=== PATIENT | male | born 2000 | race Caucasian/White ===

== ENCOUNTER 2024-09-16 15:46 | Emergency (ER) | payer BC, OTHER ==
[2024-09-16 16:19] VITALS: BP 125/74; PULSE 97; RESP 20; TEMP 98.2; BMI 26.4
[2024-09-16 17:40] LABS: HEMATOCRIT 45.5 % (35.4-49); HEMOGLOBIN 15.9 G/dL (11.7-16.9); MCH 29.9 pg (25.7-33.7); MCHC 34.9 g/dl (32.0-35.9); MEAN CELL VOLUME 85.6 fl (80-96); MEAN PLT VOLUME 8.8 fl (7.5-11.1); PLATELET COUNT 153.8 10^3/uL (134-434); RBC 5.32 10^6/uL (4.00-5.60); RDW 13.5 % (11.9-15.9); WHITE BLOOD COUNT 7.6 10^3/uL (4.0-10.8)
[2024-09-16 17:49] LABS: ALBUMIN 4.6 g/dl (3.4-5.0); BILIRUBIN,TOTAL 0.8 mg/dl (0.2-1); CALCIUM 9.5 mg/dl (8.5-10.1); CREATININE 1.2 mg/dl (0.6-1.3); POTASSIUM 4.8 mmol/L (3.5-5.1); TOT PROT 6.8 g/dl (6.4-8.2)
[2024-09-16 19:19] LABS: PLATELET ESTIMATE ADEQUATE
== END 2024-09-16 21:02 | disposition home or self-care (01) ==
LOC: FER 15:46
DX: R59.0 Localized enlarged lymph nodes (principal); R22.1 Localized swelling, mass and lump, neck
CPT/HCPCS: 36415; 70490-TC; 80053; 85027; 99285-25